=== PATIENT | male | born 1955 | race Caucasian/White ===

== ENCOUNTER 2023-06-04 09:57 | Inpatient (IN) | payer OTHER ==
[~2023-06-04] VITALS: Ht 185.4 cm; Wt 97.5 kg
[2023-06-04] VITALS (12 sets, daily range): BP systolic 102–135; BP diastolic 69–94
[2023-06-04 10:32] LABS: Source, Urine Clean Catch
[2023-06-04 10:34] LABS: Bilirubin, Urine Neg (Neg); Blood, Urine Neg (Neg); Color, Urine Yellow (P-Yellow); Glucose Qualitative, Urine Neg (Neg); Ketones, Urine 1+ (Neg); Leukocyte Esterase, Urine 1+ (Neg); Nitrite, Urine Neg (Neg); Protein, Urine 2+ (Neg); Urobilinogen, Urine 1+ (Normal)
[2023-06-04 10:40] LABS: Appearance, Urine Hazy (Clear)
[2023-06-04 10:45] LABS: Bacteria Few /hpf; Squamous Epithelial Cells Rare /hpf (Few)
[2023-06-04 10:47] LABS: Hyaline Casts 0-2 /lpf (0-2); Mucus Heavy (0-Heavy); Red Blood Cells, Urine 0-2 /hpf (0-2)
[2023-06-04 10:52] LABS: BASOPHILS ABSOLUTE AUTO 0.07 K/mm3 (0.00-0.23); BASOPHILS PERCENT AUTO 0 % (0-2); EOSINOPHILS ABSOLUTE AUTO 0.05 K/mm3 (0.00-0.68); EOSINOPHILS PERCENT AUTO 0 % (0-6); Hemoglobin 16.6 g/dL (13.5-17.5); IMMATURE GRAN ABSOLUTE AUTO 0.06 K/mm3 (0.00-0.10); IMMATURE GRAN PERCENT AUTO 0 % (0-1); LYMPHOCYTES ABSOLUTE AUTO 0.62 K/mm3 (0.84-5.20); LYMPHOCYTES PERCENT AUTO 3 % (21-46); MONOCYTES ABSOLUTE AUTO 0.67 K/mm3 (0.16-1.47); MONOCYTES PERCENT AUTO 4 % (4-13); Mean Corpuscular HGB 32.4 pg (26.0-34.0); Mean Corpuscular HGB Conc 36.1 g/dL (31.5-36.5); Mean Corpuscular Volume 90 fL (80-100); Mean Platelet Volume 10.4 fL (9.1-12.4); NEUTROPHILS ABSOLUTE AUTO 16.59 K/mm3 (1.96-9.15); NEUTROPHILS PERCENT AUTO 92 % (41-73); Platelet Count 212 K/mm3 (150-400); RDW Coefficient Variation 12.8 % (11.7-14.2); RDW Standard Deviation 42.5 fL (35.1-46.3); Red Blood Cell Count 5.12 M/mm3 (4.30-5.90); White Blood Cell Count 18.06 K/mm3 (4.00-11.30)
[2023-06-04 11:14] LABS: Albumin, Blood 3.7 g/dL (3.4-5.0); Bilirubin, Total 1.1 mg/dL (0.1-1.0); Bun/Creatinine Ratio 14.9 (12.0-20.0); Creatinine, Blood 1.01 mg/dL (0.60-1.20); Globulin, Blood 3.7 g/dL (2.2-4.0); Potassium, Blood 3.6 mmol/L (3.5-5.5); Total Protein, Blood 7.4 g/dL (6.4-8.2)
--- NOTE | 2023-06-04 15:07 | NUR ---
ADMISSION: REPORT RECEIVED FROM CEMENTER MACHINE. PT TO ROOM AT ABOUT 1350. PT IS A/O, ABLE TO AMBULATE FROM GURNEY TO BED. VSS. PT ANXIOUS. ORIENTED TO ROOM AND CALL LIGHT. DENIES ANY PAIN OR NAUSEA AT THIS TIME. PLAN IS FOR OR, PT NPO.
--- NOTE | 2023-06-04 15:36 | NUR ---
PT TO OR AT 1520
--- NOTE | 2023-06-04 15:57 | NUR ---
Patient up to Ambulate independently. Gait steady. VOIDS PRIOR TO XFER TO OR GURNEY. Surgical site prepped with 2% Chlorhexidine cloth wipe ON SURG FLOOR. History, Chart, Medications and Allergies reviewed before start of procedure. Lungs clear T/O to Auscultation. RA BIOX 100%. Patient confirms NPO status and agrees with scheduled surgery. Pre-Op teaching done. Pt verbalizes understanding. PRE OP EKG IN SDS/PACU
--- NOTE | 2023-06-04 19:00 | NUR ---
POST OP: REPORT RECEIVED FROM ROYCE, PEARL HAND. PT TO UNIT AT 1845. PT A/O, VSS. SURGICAL SITES WNL, SMALL AMOUT SS DRAINAGE IN SUNSHINE DRAIN. PT DENIES PAIN /NAUSEA AT THIS TIME. INSTRUCTED TO USE CALL LIGHT IF NEEDS OOB. PT VERBALIZED UNDERSTANDING. CALL LIGHT IN REACH.
[2023-06-05 00:35] VITALS: BP 114/79
[2023-06-05 03:57] VITALS: BP 115/73
[2023-06-05 04:10] LABS: BASOPHILS ABSOLUTE AUTO 0.02 K/mm3 (0.00-0.23); BASOPHILS PERCENT AUTO 0 % (0-2); EOSINOPHILS PERCENT AUTO 0 % (0-6); Hematocrit 42.2 % (37.0-53.0); Hemoglobin 14.5 g/dL (13.5-17.5); IMMATURE GRAN ABSOLUTE AUTO 0.03 K/mm3 (0.00-0.10); IMMATURE GRAN PERCENT AUTO 0 % (0-1); LYMPHOCYTES ABSOLUTE AUTO 0.52 K/mm3 (0.84-5.20); LYMPHOCYTES PERCENT AUTO 4 % (21-46); MONOCYTES ABSOLUTE AUTO 0.35 K/mm3 (0.16-1.47); MONOCYTES PERCENT AUTO 3 % (4-13); Mean Corpuscular HGB 32.2 pg (26.0-34.0); Mean Corpuscular HGB Conc 34.4 g/dL (31.5-36.5); Mean Corpuscular Volume 94 fL (80-100); Mean Platelet Volume 10.8 fL (9.1-12.4); NEUTROPHILS ABSOLUTE AUTO 11.35 K/mm3 (1.96-9.15); NEUTROPHILS PERCENT AUTO 93 % (41-73); Platelet Count 188 K/mm3 (150-400); RDW Coefficient Variation 13.2 % (11.7-14.2); RDW Standard Deviation 45.2 fL (35.1-46.3); White Blood Cell Count 12.27 K/mm3 (4.00-11.30)
[2023-06-05 04:27] LABS: Bun/Creatinine Ratio 15.2 (12.0-20.0); Calcium, Blood 8.5 mg/dL (8.5-10.1); Creatinine, Blood 1.05 mg/dL (0.60-1.20); Potassium, Blood 4.5 mmol/L (3.5-5.5)
--- NOTE | 2023-06-05 06:20 | NUR ---
SHIFT SUMMARY PT IS HERE POD#1 FOR A LAP APPY. PT HAS 4 LAP SITES AND A SUNSHINE DRAIN IN HIS MID LEFT ABDOMEN. PT HAS BEEN MEDICATED FOR PAIN PER EMAR AND RECEIVED TWO DOSES OF IV ABX THIS SHIFT. PT IS ALERT AND ORIENTED AND HAS BEEN INDEPENDENT IN THE ROOM. NO ACUTE EVENTS OCCURRING THIS SHIFT, VITAL SIGNS HAVE BEEN STABLE. BED IS IN LOWEST POSITION, CALL LIGHT IS WITHIN REACH.
[2023-06-05 08:00] VITALS: BP 119/81
[2023-06-05 15:01] VITALS: BP 124/81
--- NOTE | 2023-06-05 18:28 | NUR ---
SHIFT SUMMARY POD1 LAP APPY, A/OX4, VSS, TOLERATING PO, AMBULATES INDEPENDENTLY, Q6 IV ABX INFUSED ORDERD, SUNSHINE UNIQUE REMAINS IN PLACE DRAINING TO SELF SUCTION, PT REMAINS ON CLEARS AND DENIES FLATUS THIS SHIFT. NO ACUTE EVENTS THIS SHIFT, CALL LIGHT IN REACH.
--- NOTE | 2023-06-05 19:34 | NUR ---
SUNSHINE DRAIN DISCUSSING SUNSHINE DRAIN WITH NOC NURSE DURING BEDSIDE SHIFT REPORT, PT REPORTS HE HAS BEEN EMPTYING HIS OWN SUNSHINE DRAIN. DISCUSSED THE IMPORTANCE OF STAFF BEING ABLE TO MONITOR OUTPUT IN BOTH TYPE OF OUTPUT AND AMOUNT, PT AGREES TO LET STAFF MANAGE ITFROM HERE ON OUT.
[2023-06-05 19:56] VITALS: BP 136/85
[2023-06-06 04:20] VITALS: BP 124/87
[2023-06-06 04:40] LABS: BASOPHILS ABSOLUTE AUTO 0.04 K/mm3 (0.00-0.23); BASOPHILS PERCENT AUTO 0 % (0-2); EOSINOPHILS PERCENT AUTO 5 % (0-6); Hematocrit 39.9 % (37.0-53.0); Hemoglobin 13.8 g/dL (13.5-17.5); IMMATURE GRAN ABSOLUTE AUTO 0.03 K/mm3 (0.00-0.10); IMMATURE GRAN PERCENT AUTO 0 % (0-1); LYMPHOCYTES ABSOLUTE AUTO 1.39 K/mm3 (0.84-5.20); LYMPHOCYTES PERCENT AUTO 15 % (21-46); MONOCYTES ABSOLUTE AUTO 0.63 K/mm3 (0.16-1.47); MONOCYTES PERCENT AUTO 7 % (4-13); Mean Corpuscular HGB 32.8 pg (26.0-34.0); Mean Corpuscular HGB Conc 34.6 g/dL (31.5-36.5); Mean Corpuscular Volume 95 fL (80-100); Mean Platelet Volume 11.3 fL (9.1-12.4); NEUTROPHILS ABSOLUTE AUTO 6.81 K/mm3 (1.96-9.15); NEUTROPHILS PERCENT AUTO 73 % (41-73); Platelet Count 167 K/mm3 (150-400); RDW Coefficient Variation 13.3 % (11.7-14.2); Red Blood Cell Count 4.21 M/mm3 (4.30-5.90)
[2023-06-06 05:11] LABS: Albumin, Blood 2.9 g/dL (3.4-5.0); Anion Gap 2 mmol/L (6-16); Blood Urea Nitrogen 14 mg/dL (8-24); Bun/Creatinine Ratio 12.6 (12.0-20.0); CO2, Blood 30 mmol/L (21-32); Calcium, Blood 8.4 mg/dL (8.5-10.1); Chloride, Blood 109 mmol/L (98-108); Creatinine, Blood 1.11 mg/dL (0.60-1.20); Glomerular Filtration Rate 72 (60-); Glucose, Blood 102 mg/dL (70-99); Potassium, Blood 3.7 mmol/L (3.5-5.5); Sodium, Blood 141 mmol/L (136-145)
--- NOTE | 2023-06-06 05:24 | NUR ---
SHIFT SUMMARY NOC. PT POD 2 FOR APPY. A/O X4. PT AMBULATING TO THE BR AND VOIDING. PT'S LAP SITES ARE C/D/I. SUNSHINE DRAIN PRODUCING SEROSANG DRAINAGE. PT MEDICATED FOR PAIN X2 WITH RELIEF OF SX. PT REPORTED FLATUS PER RECTUM AT 0430. PT TOLERATING CLEAR LIQUIDS. PT RESTED WITH EYES CLOSED AND CALL LIGHT IN REACH.
[2023-06-06 07:16] VITALS: BP 137/91
--- NOTE | 2023-06-06 08:45 | NUR ---
LOWER ABD AND RECTAL PAIN PT AMBULATED IN THE HALWAYS AT APPROXIMATELY 0815. AFTER RETURNING TO HIS ROOM PT REPORTED SEVERE AND SHARP RECTAL AND LOWER ABD PAIN. PT ALSO REPORTED NAUSEA AND WAS GIVEN ZOFRAN. DURING BEDSIDE SHIFT REPORT PT REPORTED SELF MANUAL RECTAL STIMULATION TO ENCOURAGE BOWEL MOVEMENT; AT THE TIME OF RECTAL PAIN PT DENIED FURTHER ATTEMPTS AT RECTAL STIMULATION. PT ENCOURAGED NOT TO STRAIN TO HAVE A BOWEL MOVEMENT, AND TO NOT CONTINUE RECTAL STIMULATION. DR. ENNIS NOTIFIED AND STATED SHE WOULD PLACE AN ADDITIONAL ONE TIME ORDER FOR FENTANYL. PT WENT BACK TO BED AND PAIN IMPROVED WITH POSITIONING ONTO HIS RIGHT SIDE. IDALIA RN AT BEDSIDE WHEN THIS RN ASSESSED ANUS, NO EXTERNAL SIGNS OF TRAUMA OR BLEEDING.
[2023-06-06 09:09] VITALS: BP 130/84
--- NOTE | 2023-06-06 09:15 | NUR ---
PT REPORTED FEELING SHORT OF BREATH AT 0907 X 10 MINUTES. PT ASSESSED, VSS. PT REPORTED HIS NOSE IS "STUFFY" AND THAT IS WHY HE FEELS SHORT OF BREATH. PT DENIED CHEST PAIN.
--- NOTE | 2023-06-06 10:07 | NUR ---
RN REQUEST THIS BOAT DOCK OPERATOR TO CHANGE BEDDING. DUE TO DRAINAGE FROM STOMACH.PATIENT REFUSED. RN NOTIFIED THAT PATIENT REFUSED. PATIENT ALLOWED ME TO TUCK A DRY PAD BETWEEN HIM AND BED UNDER STOMACH. PATIENT STATED." HE WILL NOTIFY ME WHEN READY FOR BEDDING CHANGE AND WIPES TO WASH UP."
--- NOTE | 2023-06-06 11:20 | NUR ---
DR. ZEE ROUNDED AT APPROXIMATELY 0930. PER DR. ZEE KEEP PT NPO AND PLACE NG TUBE IF HE STARTS VOMITING. DR. ZEE REPORTED CONCERN FOR ILEUS. WILL CONTINUE TO MONITOR.
--- NOTE | 2023-06-06 15:22 | NUR ---
PT AMBULATED IN THE HALWAYS AND REPORTED PASSING FLATUS. PT'S ABD REMAINS DISTENDED.
[2023-06-06 17:27] VITALS: BP 110/62
[2023-06-06 17:28] VITALS: BP 110/62
--- NOTE | 2023-06-06 17:53 | NUR ---
SHIFT SUMMARY PT IS POD#[address] ZEE. PAIN MANAGED WITH FENTANYL. PT IS PAINFUL WITH AMBULATION, AMBULATION HAS BEEN COORDINATED WITH PAIN MED ADMINISTRATION. PT REPORTED PASSING SOME FLATUS THIS AFTERNOON. HIS ABD REMAINS DISTENDED. SIGNIFICANT OUTPUT OF CLOUDY PEACH COLORED FLUID FROM SUNSHINE DRAIN. PT RESTING IN BED, CALL LIGHT WITHIN REACH.
[2023-06-06 19:25] VITALS: BP 115/67
[2023-06-07 02:33] VITALS: BP 100/67
[2023-06-07 07:38] VITALS: BP 123/77
--- NOTE | 2023-06-07 07:45 | NUR ---
SHIFT SUMMARY NOC. PT A/O X4 THIS SHIFT. LAP SITES ARE C/D/I. SUNSHINE DRAIN PRODUCING YELLOW DRAINAGE 135 CC TOTAL THIS SHIFT. PT AMBULATED IN THE HALLS FOR LONG WALKS 2X THIS SHIFT. PT PASSING GAS AND HAD 2 SMALL BMS. PT HAS BEEN PAINFUL IN HIS ABDOMEN AND BACK AND MEDICATED PER EMAR. PT RESTED WITH EYES CLOSED AND CALL LIGHT IN REACH.
--- NOTE | 2023-06-07 19:51 | NUR ---
SHIFT SUMMARY PT IS POD#3 FROM LAP APPY. PT TRANSITIONED TO PO PAIN MEDICATION, PAIN WELL MANAGED. PT AMBULATING IN THE HALWAYS. PT PASSING FLATUS AND BMS. PT ADVANCED TO REGULAR DIET THIS EVENING, TOLERATING WELL. PT REPORTED SHORTNESS OF BREATH THIS AFTERNOON, LASIX AND BREATHING TX GIVEN PER DR. ENNIS; SOB IMPROVED AND PT IS NOW RESTING. REPORT GIVEN TO SONIA PALM.
--- NOTE | 2023-06-07 19:54 | NUR ---
SHORTNESS OF BREATH PT REPORTED SOB AT APPROXIMATELY 1630. DR. ENNIS NOTIFIED. VSS, RESP RATE AND EFFORT EVEN AND UNLABORD WHEN SOB REPORTED. CRACKLES NOTED IN THE LUNGS BY DR. ENNIS. BRISA AND ABIMAEL ORDERED AND GIVEN. SOB IMPROVED WITH INTERVENTIONS.
[2023-06-07 20:34] VITALS: BP 115/71
[2023-06-08 03:15] VITALS: BP 128/88
--- NOTE | 2023-06-08 05:21 | NUR ---
SHIFT SUMMARY NOC. PT A/O X4 THIS SHIFT. PT POD 4 FOR APPENDECTOMY. PT'S LAP SITES ARE C/D/I. SUNSHINE DRAIN IS FREE OF KINKS AND PRODUCING YELLOW DRAINAGE. PT AMBULATED FOR A LONG WALK BEFORE BEDTIME. PT MEDICATED FOR PAIN WITH OXY WITH RELIEF. PT REPORTED MILD SOB EARLIER IN THE SHIFT AFTER AMBULATION. UNLABORED BREATHING, DENIED NEEDING BREATHING TREATMENT, SATS ABOVE 95% ON RA.PT RESTED WITH EYES CLOSED AND CALL LIGHT IN REACH.
[2023-06-08 05:35] LABS: Hematocrit 38.2 % (37.0-53.0); Hemoglobin 13.4 g/dL (13.5-17.5); Mean Corpuscular HGB 32.3 pg (26.0-34.0); Mean Corpuscular HGB Conc 35.1 g/dL (31.5-36.5); Mean Corpuscular Volume 92 fL (80-100); Mean Platelet Volume 10.8 fL (9.1-12.4); Platelet Count 219 K/mm3 (150-400); RDW Coefficient Variation 12.9 % (11.7-14.2); RDW Standard Deviation 43.8 fL (35.1-46.3); Red Blood Cell Count 4.15 M/mm3 (4.30-5.90); White Blood Cell Count 6.25 K/mm3 (4.00-11.30)
[2023-06-08 06:05] LABS: Albumin, Blood 2.6 g/dL (3.4-5.0); Anion Gap 5 mmol/L (6-16); Blood Urea Nitrogen 10 mg/dL (8-24); Bun/Creatinine Ratio 9.4 (12.0-20.0); CO2, Blood 27 mmol/L (21-32); Calcium, Blood 8.4 mg/dL (8.5-10.1); Chloride, Blood 107 mmol/L (98-108); Creatinine, Blood 1.06 mg/dL (0.60-1.20); Glomerular Filtration Rate 76 (60-); Glucose, Blood 109 mg/dL (70-99); Phosphorus, Blood 3.4 mg/dL (2.5-4.9); Potassium, Blood 3.4 mmol/L (3.5-5.5); Sodium, Blood 139 mmol/L (136-145)
[2023-06-08 07:21] VITALS: BP 141/90
[2023-06-08] MEDS ORDERED: ACET325 PO (13:24)
[2023-06-08] MEDS ORDERED: ALBU90OI INH (13:24)
[2023-06-08] MEDS ORDERED: AMOCLA875 PO (13:25)
[2023-06-08] MEDS ORDERED: Nicoderm Cq1 EAC1 TOP (13:26)
[2023-06-08] MEDS ORDERED: LACT PO (13:26)
[2023-06-08] MEDS ORDERED: OXAYDO5 M1 (13:28)
== END 2023-06-08 13:53 | disposition home or self-care (01) | DRG 853 ==
LOC: ER 09:57 → MEDS 09:58 → SURS 09:58
PROVIDERS: Internal Medicine; Physician Assistant; Surgery; ADMIT Family Medicine
PROC: 0W9F4ZZ Drainage of Abdominal Wall, Percutaneous Endoscopic Approach (ICD-10-PCS; 2023-06-04)
PROC: 0DTJ4ZZ Resection of Appendix, Percutaneous Endoscopic Approach (ICD-10-PCS; principal; 2023-06-04 14:15)
PROC: 3E03329 Introduction of Other Anti-infective into Peripheral Vein, Percutaneous Approach (ICD-10-PCS; 2023-06-05)
DX: A41.9 Sepsis, unspecified organism (principal); K35.32 Acute appendicitis with perforation, localized peritonitis, and gangrene, without abscess; K91.89 Other postprocedural complications and disorders of digestive system; K56.7 Ileus, unspecified; L02.211 Cutaneous abscess of abdominal wall; I10 Essential (primary) hypertension; F17.210 Nicotine dependence, cigarettes, uncomplicated; N40.0 Benign prostatic hyperplasia without lower urinary tract symptoms; F10.90 Alcohol use, unspecified, uncomplicated; Z79.899 Other long term (current) drug therapy; Z98.890 Other specified postprocedural states
CPT/HCPCS: 36415; 74177; 80048; 80053; 80069; 81001; 83605; 83690; 85025; 85027; 87086; 88304; 93005; 93010; 94640; 94664; 94760; 96361; 96365; 96374; 96375; 96376; 99285-25; A9270; G0378; J1100; J1170; J1885; J2371; J2405; J2543; J2704; J2710; J3010; J7030; J7120; Q9967

== ENCOUNTER 2024-06-12 00:15 | Inpatient (IN) | payer OTHER ==
[~2024-06-12] VITALS: Ht 185.4 cm; Wt 99.7 kg
[~2024-06-12 00:15] MED LIST: ACET325 PO; ALBU90OI INH; AMOCLA875 PO; LACT PO; Nicoderm Cq1 EAC1 TOP; OXAYDO5 M1 PO
[2024-06-12] MEDS ORDERED: Ipratropium/Albuterol SulF 2.5-0.5MG/3 ML Amp INH ONE ×2 (00:50→01:25)
[2024-06-12] MEDS ORDERED: MethylPREDNISolone Sod Succ 125 MG Vial IV ONE (00:50)
[2024-06-12] MEDS ORDERED: Magnesium Sulf 2 GM/Water 50ML 50 ML IV ONE (01:20)
[2024-06-12 01:27] LABS: BASOPHILS ABSOLUTE AUTO 0.14 K/mm3 (0.00-0.23); BASOPHILS PERCENT AUTO 2 % (0-2); EOSINOPHILS ABSOLUTE AUTO 1.93 K/mm3 (0.00-0.68); EOSINOPHILS PERCENT AUTO 21 % (0-6); Hematocrit 49.2 % (37.0-53.0); Hemoglobin 17.1 g/dL (13.5-17.5); IMMATURE GRAN ABSOLUTE AUTO 0.02 K/mm3 (0.00-0.10); IMMATURE GRAN PERCENT AUTO 0 % (0-1); LYMPHOCYTES ABSOLUTE AUTO 2.73 K/mm3 (0.84-5.20); LYMPHOCYTES PERCENT AUTO 30 % (21-46); MONOCYTES ABSOLUTE AUTO 0.86 K/mm3 (0.16-1.47); MONOCYTES PERCENT AUTO 10 % (4-13); Mean Corpuscular HGB 32.4 pg (26.0-34.0); Mean Corpuscular HGB Conc 34.8 g/dL (31.5-36.5); Mean Corpuscular Volume 93 fL (80-100); Mean Platelet Volume 10.2 fL (9.1-12.4); NEUTROPHILS ABSOLUTE AUTO 3.42 K/mm3 (1.96-9.15); NEUTROPHILS PERCENT AUTO 38 % (41-73); Platelet Count 254 K/mm3 (150-400); RDW Coefficient Variation 12.8 % (11.7-14.2); RDW Standard Deviation 44.2 fL (35.1-46.3); Red Blood Cell Count 5.28 M/mm3 (4.30-5.90)
[2024-06-12] MEDS ORDERED: Ipratropium Bromide INH 0.02% 0.5 mg/2.5ML Vial INH SCH (01:40)
[2024-06-12] MEDS ORDERED: Albuterol 2.5 MG/3 ML VIAL INH SCH (01:40)
[2024-06-12 01:43] LABS: Bicarbonate Venous 23.7 mmol/L (24.0-30.0); PCO2 Venous 40.4 mmHg (38-42); pH Blood Venous 7.38 (7.34-7.37)
[2024-06-12 01:46] LABS: Bun/Creatinine Ratio 16.1 (12.0-20.0); Calcium, Blood 9.2 mg/dL (8.5-10.1); Creatinine, Blood 1.24 mg/dL (0.60-1.20); Potassium, Blood 4.6 mmol/L (3.5-5.5)
[2024-06-12] MEDS ORDERED: Ketorolac Tromethamine 15mg Vial IV ONE (01:55)
[2024-06-12 02:04] LABS: Influenza A, PCR NEGATIVE (NEGATIVE); Influenza B, PCR NEGATIVE (NEGATIVE); Resp Syncytial Virus, PCR NEGATIVE (NEGATIVE); SARS-Cov-2 (COVID-19) PCR, MMC NEGATIVE (NEGATIVE)
[2024-06-12] MEDS ORDERED: Ipratropium/Albuterol SulF 2.5-0.5MG/3 ML Amp INH PRN (04:20)
[2024-06-12] MEDS ORDERED: Ondansetron HCl 2 MG / ML 2ML Vial IV PRN (04:20)
[2024-06-12] MEDS ORDERED: FLU VACC TS2024-25(6MOS UP)/PF 45 MCG/0.5 ML SYRINGE IM ONE (04:20)
[2024-06-12] MEDS ORDERED: Azithromycin 500 MG in NS 250 ML IV SCH (04:26)
[2024-06-12] MEDS ORDERED: GuaiFENesin 100 MG/5 ML 5ML UDC PO PRN (05:25)
[2024-06-12 05:59] LABS: BASOPHILS ABSOLUTE AUTO 0.05 K/mm3 (0.00-0.23); BASOPHILS PERCENT AUTO 1 % (0-2); EOSINOPHILS ABSOLUTE AUTO 0.15 K/mm3 (0.00-0.68); EOSINOPHILS PERCENT AUTO 2 % (0-6); Hematocrit 45.6 % (37.0-53.0); IMMATURE GRAN ABSOLUTE AUTO 0.03 K/mm3 (0.00-0.10); IMMATURE GRAN PERCENT AUTO 0 % (0-1); LYMPHOCYTES ABSOLUTE AUTO 0.79 K/mm3 (0.84-5.20); LYMPHOCYTES PERCENT AUTO 12 % (21-46); MONOCYTES ABSOLUTE AUTO 0.08 K/mm3 (0.16-1.47); MONOCYTES PERCENT AUTO 1 % (4-13); Mean Corpuscular HGB 32.3 pg (26.0-34.0); Mean Corpuscular HGB Conc 35.1 g/dL (31.5-36.5); Mean Corpuscular Volume 92 fL (80-100); Mean Platelet Volume 10.4 fL (9.1-12.4); NEUTROPHILS ABSOLUTE AUTO 5.65 K/mm3 (1.96-9.15); NEUTROPHILS PERCENT AUTO 84 % (41-73); Platelet Count 207 K/mm3 (150-400); RDW Coefficient Variation 12.8 % (11.7-14.2); RDW Standard Deviation 43.4 fL (35.1-46.3); Red Blood Cell Count 4.95 M/mm3 (4.30-5.90); White Blood Cell Count 6.75 K/mm3 (4.00-11.30)
[2024-06-12] MEDS ORDERED: MethylPREDNISolone Sod Succ 125 MG Vial IV SCH ×2 (06:00→08:00)
[2024-06-12 06:30] VITALS: BP 134/83
[2024-06-12 06:30] LABS: Alanine Aminotransfer (ALT/SGP 37 U/L (12-78); Albumin, Blood 3.8 g/dL (3.4-5.0); Albumin/Globulin Ratio 1.2 (0.8-1.8); Alk Phos 67 U/L (50-136); Anion Gap 10 mmol/L (3-11); Aspartate Aminotrans (AST/SGOT 30 U/L (12-37); Bilirubin, Direct <0.1 mg/dL (0.0-0.3); Bilirubin, Indirect Unable to Calculate mg/dL (0.1-0.7); Bilirubin, Total 0.3 mg/dL (0.1-1.0); Blood Urea Nitrogen 21 mg/dL (8-24); Bun/Creatinine Ratio 17.8 (12.0-20.0); CO2, Blood 24 mmol/L (21-32); Calcium, Blood 8.9 mg/dL (8.5-10.1); Chloride, Blood 108 mmol/L (98-108); Creatinine, Blood 1.18 mg/dL (0.60-1.20); Globulin, Blood 3.3 g/dL (2.2-4.0); Glomerular Filtration Rate 67 (60-); Glucose, Blood 162 mg/dL (70-99); Potassium, Blood 4.3 mmol/L (3.5-5.5); Sodium, Blood 138 mmol/L (136-145); Total Protein, Blood 7.1 g/dL (6.4-8.2)
[2024-06-12] MEDS ORDERED: Benzonatate 100 MG Cap PO PRN (06:40)
[2024-06-12] MEDS ORDERED: Acetaminophen 325 MG TABLET PO PRN (06:40)
[2024-06-12] MEDS ORDERED: Ipratropium/Albuterol SulF 2.5-0.5MG/3 ML Amp INH SCH (07:00)
[2024-06-12] MEDS ORDERED: Albuterol HFA200 ACT/6.7 GM INH INH PRN (07:15)
[2024-06-12] MEDS ORDERED: Mometasone/Formoterol MDI 200/5 mcg 13 GM INH SCH (07:20)
[2024-06-12 07:51] VITALS: BP 141/95
[2024-06-12] MEDS ORDERED: Enoxaparin 40 MG/0.4 ML SYR SC SCH (09:00)
[2024-06-12 12:10] VITALS: BP 134/76
[2024-06-12] MEDS ORDERED: OxyCODONE HCL 5 MG TAB PO PRN (12:25)
[2024-06-12] MEDS ORDERED: Melatonin 5 MG Tablet PO PRN (12:25)
[2024-06-12] MEDS ORDERED: LISINOPRIL-HCT1 EAC1 PO (13:31)
[2024-06-12] MEDS ORDERED: Hair, Skin & N1 EACH PO (13:37)
[2024-06-12] MEDS ORDERED: VITAMIN D350 MC3 PO (13:39)
[2024-06-12] MEDS ORDERED: ASPI325 PO (13:41)
[2024-06-12] MEDS ORDERED: SERT100 PO (13:41)
[2024-06-12] MEDS ORDERED: Adderall 20 MG20 MG PO (13:42)
[2024-06-12] MEDS ORDERED: SPIRIVA RESPIMAT4 G3 INH (13:43)
[2024-06-12] MEDS ORDERED: Deltasone 10 mg10 MG PO (14:15)
[2024-06-12] MEDS ORDERED: AZIT250 PO (14:16)
[2024-06-12 15:37] VITALS: BP 144/91
--- NOTE | 2024-06-12 15:50 | NUR ---
THIS RN PROVIDED WRITTEN AND VERBAL DC INSTRUCTIONS TO PT. PTS QUESTIONS AND CONCERNS WERE ADDRESSED AND PT DENIES ANY QUESITONS OR CONCERNS. IV WAS REMOVED WITH CATHETER INTACT. PT WAS GIVEN A DOSE OF SOLUMEDROL PRIOR TO DC AND WAS INSTRUCTED TO HASH SLINGER MEDS FROM THE PHARMACY IN THE AM. PT WAS WALKED OUT BY THIS RN TO HIS RIDE.
== END 2024-06-12 15:53 | disposition home or self-care (01) | DRG 189 ==
LOC: ER 00:15 → PCU 04:27 → ERHOLD 04:27 → PCU 05:48
PROVIDERS: Emergency Medicine; ADMIT Internal Medicine
DX: J96.01 Acute respiratory failure with hypoxia (principal); J44.1 Chronic obstructive pulmonary disease with (acute) exacerbation; J44.0 Chronic obstructive pulmonary disease with (acute) lower respiratory infection; F17.210 Nicotine dependence, cigarettes, uncomplicated; N40.0 Benign prostatic hyperplasia without lower urinary tract symptoms; I10 Essential (primary) hypertension; D72.10 Eosinophilia, unspecified; Z79.51 Long term (current) use of inhaled steroids; Z79.899 Other long term (current) drug therapy; Z79.2 Long term (current) use of antibiotics; Z79.891 Long term (current) use of opiate analgesic; Z90.49 Acquired absence of other specified parts of digestive tract; Z98.890 Other specified postprocedural states
CPT/HCPCS: 0241U; 71045; 80048; 80053; 82248; 82803; 83880; 85025; 85379; 87070; 87205; 93005; 93010; 93306; 94640; 94645; 94664; 94760; 94762; 96365-59; 96366; 96375-59; 99285-25; A9270; J0456; J1650; J1885; J2919; J3475; J7050